=== PATIENT | male | born 1950 | race Caucasian/White ===

== ENCOUNTER 2017-07-23 05:35 | Inpatient (IN) | payer OTHER, MEDICARE ==
--- NOTE | 2017-07-18 11:35 | GHP ---
[f rep st] PREOP HISTORY AND PHYSICAL DATE OF ADMISSION: 07/23/2017 PROBLEM: Left hip advanced degenerative arthritis. HISTORY OF PRESENT ILLNESS: The patient is a 67-year-old man with advanced degenerative arthritis o f his left hip. I first saw him 16 years ago. His pain has slowly progressed. He is now having se leandro daily pain. He has a lot of night pain which interferes with sleep. He has difficulty putting on his shoes and socks. He uses Aleve and aspirin on the weekends. He is retired. He cannot ride a bicycle. He has failed nonsurgical treatment. He is admitted for a left total hip arthroplasty. He also has advanced degenerative arthritis in his right hip and will need a right total hip arthr oplasty in the near future as well. PAST MEDICAL HISTORY: Excellent general health. No history of heart disease, stents, DVT, hepatiti s, or sleep apnea. No history of previous serious MRSA infections. CURRENT MEDICATIONS: None. ALLERGIES: Drug allergies: None. Metal allergy: None. Latex allergy: None. SOCIAL HISTORY: The patient is . He is retired. He stopped smoking cigarettes 10 or 15 yea rs ago. He rarely drinks alcohol. He does not have any other total joint replacements. FAMILY HISTORY: Noncontributory. PHYSICAL EXAMINATION: GENERAL: He is a healthy-appearing man. EYES: The conjunctivae and sclerae are clear. Pupils are round and reactive. MOUTH: Good oral hygiene. No loose teeth. CHEST: Cl ear. HEART: Regular rhythm, no murmurs. EXTREMITIES: Pertinent findings are limited to his left hip. He has full hip extension and 70 degrees of flexion. As he flexes the hip, he develops a 20-d egree external rotation contracture and has no further internal or external rotation. Abduction 20 degrees. IMAGING: His films show very severe degenerative arthritis of the left hip. He is [id number]. T he femoral head is enlarged and flattened. He is about 5 mm short on the left. He also has advance d degenerative arthritis in the right hip, although it is not quite as severe as the left. PLAN: He will undergo a left total hip arthroplasty. The surgery has been described to him, includ ing the risks, complications, expectations, and recovery time. I have talked to him about the risk of dislocation, leg length inequality, infection, and sciatic nerve injury. He understands that he is relatively young and might need revision surgery in the future. He plans on having his right tot al hip done in the next 6 months. /[id number]/MODL
[2017-07-23] MEDS ORDERED: ROPIVACAINE 0.2% 80 MG, EPINEPHrine 0.2 MG, KETOROLAC TROMETHAMINE 30 MG in BAG 0 ML IU ONE (06:00)
[2017-07-23] MEDS ORDERED: TRANEXAMIC ACID 1,500 MG in NS 100 ML IV ONE (06:00)
[2017-07-23] MEDS ORDERED: POVIDONE-IODINE 20 ML in SODIUM CL IRRIG SOLUTION 500 ML IRR ONE (06:00)
[2017-07-23] MEDS ORDERED: ACETAMINOPHEN 325 MG TAB PO ONE (06:03)
[2017-07-23] MEDS ORDERED: FAMOTIDINE 20 MG TAB PO ONE (06:03)
[2017-07-23] MEDS ORDERED: ceFAZolin 2 GM/DEXTROSE 100 ML IV ONE (06:03)
[2017-07-23] MEDS ORDERED: DEXAMETHASONE 4 MG/ML VIAL IVP ONE (06:03)
[2017-07-23] MEDS ORDERED: LR 1,000 ML IV ONE (06:08)
[2017-07-23] MEDS ORDERED: ceFAZolin 1 GM/5 ML SYR ONE (06:38)
--- NOTE | 2017-07-23 06:54 | PDHPUP ---
History & Physical Update H&P update statement: This history and physical update is based on an assessment of the patient which was completed after admission or registration (within 24 hours), but prior to the surgery/procedure. H&P update: H&P reviewed & patient examined, no change in patient's condition since H&P completed
[2017-07-23] MEDS ORDERED: MIDAZOLAM 2 MG/2 ML VIAL ONE (06:55)
--- NOTE | 2017-07-23 06:57 | PDANEPAE ---
ANE History of Present Illness 67 yo for l kodi ANE Past Medical History - Cardiovascular History Hx Hypertension: No Hx Arrhythmias: No Hx Chest Pain: No Hx Coronary Artery / Peripheral Vascular Disease: No Hx CHF / Valvular Disease: No Hx Palpitations: No - Pulmonary History Hx COPD: No Hx Asthma/Reactive Airway Disease: No Hx Recent Upper Respiratory Infection: No Hx Oxygen in Use at Home: No Hx Sleep Apnea: No Sleep Apnea Screening Result - Last Documented: Negative Pulmonary History Comment: OCC CHEST CONGESTION - Neurologic History Hx Cerebrovascular Accident: No Hx Seizures: No Hx Dementia: No - Endocrine History Hx Diabetes: No - Renal History Hx Renal Disorders: No - Liver History Hx Hepatic Disorders: No - Neurological & Psychiatric Hx Hx Neurological and Psychiatric Disorders: No - Cancer History Hx Cancer: No - Congenital Disorder History Hx Congenital Disorders: No - GI History Hx Gastrointestinal Disorders: No - Other Health History Other Health History: WEARS GLASSES FOR DRIVING. BRACES ON TEETH - Chronic Pain History Chronic Pain: Yes (LEFT HIP) - Surgical History Prior Surgeries: APPY IN 6TH GRADE OR SO. WISDOM TEETH REMOVED X2 ANE Review of Systems - Exercise capacity METS (RN): 4 METS ANE Patient History - Allergies Allergies/Adverse Reactions: No Known Allergies Allergy (Verified 07/18/17 15:10) - Home Medications Home medications: home medication list seen and reviewed Home Medications: Aspirin [Aspirin 325 mg (*)] 325 mg PO DAILY PRN 07/18/17 [Last Taken 2 Weeks Ago] Naproxen Sodium [Aleve 220 MG (*)] 220 mg PO DAILY PRN 07/18/17 [Last Taken 2 Weeks Ago] Herbals/Supplements -Info Only 07/23/17 [Last Taken 07/13/17] - NPO status NPO Status: no food or drink >8 hours NPO Since - Liquids (Date): 07/23/17 NPO Since - Liquids (Time): 04:15 NPO Since - Solids (Date): 07/22/17 NPO Since - Solids (Time): 21:00 - Anes Hx Anes Hx: no prior problems - Smoking Hx Smoking Status: Former smoker - Family Anes Hx Family Hx Anesthesia Complications: NONE ANE Labs/Vital Signs - Vital Signs Blood Pressure: 140/94 Heart Rate: 63 Respiratory Rate: 16 O2 Sat (%): 93 Height: 5 ft 11 in Weight: 72.575 kg ANE Physical Exam - Airway Neck exam: FROM Mallampati Score: Class 2 Mouth exam: normal dental/mouth exam - Pulmonary Pulmonary: no respiratory distress - Cardiovascular Cardiovascular: regular rate and rhythym - ASA Status ASA Status: II ANE Anesthesia Plan Anesthesia Plan: spinal
[2017-07-23] MEDS ORDERED: MIDAZOLAM 2 MG/2 ML VIAL IVP ONE (06:58)
[2017-07-23] MEDS ORDERED: PROPOFOL/EMULSION 500 MG/50 ML BOTTLE IV ONE ×2 (07:08→08:11)
[2017-07-23] MEDS ORDERED: fentaNYL 100 MCG/2 ML INJ ONE (07:32)
[2017-07-23] MEDS ORDERED: epHEDrine SULFATE 10 MG/ML SYR ONE (07:37)
[2017-07-23] MEDS ORDERED: ONDANSETRON 4 MG/2 ML VIAL ONE (07:37)
[2017-07-23] MEDS ORDERED: PROMETHAZINE HCL 25 MG/ML INJ IVP PRN (08:46)
[2017-07-23] MEDS ORDERED: diphenhydrAMINE 25 MG CAP PO PRN (08:46)
[2017-07-23] MEDS ORDERED: BISACODYL 10 MG SUPP PR PRN (08:46)
[2017-07-23] MEDS ORDERED: ONDANSETRON DISINTEGRATING 4 MG TAB PO PRN (08:46)
[2017-07-23] MEDS ORDERED: PROMETHAZINE HCL 25 MG SUPPR PR PRN (08:46)
[2017-07-23] MEDS ORDERED: POLYETHYLENE GLYCOL 3350 17 GM PKT PO PRN (08:46)
[2017-07-23] MEDS ORDERED: ONDANSETRON 4 MG/2 ML VIAL IVP PRN ×2 (08:46→09:05)
[2017-07-23] MEDS ORDERED: KETOROLAC 30 MG/1 ML SDV IVP PRN (08:46)
[2017-07-23] MEDS ORDERED: METOCLOPRAMIDE 10 MG/2 ML VIAL IVP PRN (08:46)
[2017-07-23] MEDS ORDERED: MAGNESIUM HYDROXIDE 30 ML UDCUP PO PRN (08:46)
[2017-07-23] MEDS ORDERED: traMADol 50 MG TAB PO PRN (08:46)
[2017-07-23] MEDS ORDERED: TEMAZEPAM 15 MG CAP PO PRN (08:46)
[2017-07-23] MEDS ORDERED: DIPHENOXYLATE/ATROPINE LOMOTIL 1 TAB PO PRN (08:46)
[2017-07-23] MEDS ORDERED: LACTULOSE 20 GM/30 ML UDCUP PO PRN (08:46)
--- NOTE | 2017-07-23 08:46 | POSTOPPROG ---
Post Op Note Date of Operation: 07/23/17 Surgeon: Evan Barfield Glass Novelty Maker: Blaze Barber/Nati Hastings Anesthesiologist: Dr. Fernandes Anesthesia: IV Sedation, Spinal Post-op Diagnosis: Left hip severe degenerative arthritis. Procedure: Left total hip arthroplasty. Inf/Abcess present in the surg proc area at time of surgery?: No EBL: 100-500
[2017-07-23] MEDS ORDERED: LR 1,000 ML IV SCH (09:00)
[2017-07-23] MEDS ORDERED: fentaNYL 100 MCG/2 ML INJ IVP PRN (09:05)
[2017-07-23] MEDS ORDERED: NALOXONE HCL 0.4 MG/ML INJ IVP PRN (09:05)
[2017-07-23] MEDS ORDERED: HYDROmorphONE/DILAUDID 1 MG/ML SYR IVP PRN (09:05)
--- NOTE | 2017-07-23 09:07 | POSTANESTH ---
Post Anesthetic Evaluation Cardiovascular Status: Normal, Stable Respiratory Status: Normal, Stable Level of Consciousness/Mental Status: Can Participate in Eval Pain Control: Adequate, Prn Tx Ordered Nausea/Vomiting Control: Adequate, Prn Tx Ordered Complications Possibly Related to Anesthesia: None Noted
--- NOTE | 2017-07-23 11:12 | GOP ---
[f rep st] OPERATIVE REPORT DATE OF OPERATION: 07/23/2017 SURGEON: Evan Barfield MD SHIRRING MACHINE OPERATOR: Blaze Barber and Nati Hastings. ANESTHESIA: Combination of Marcaine, spinal, and IV sedation. ANESTHESIOLOGIST: Dr. Fernandes. PREOPERATIVE DIAGNOSIS: Left hip severe degenerative arthritis. POSTOPERATIVE DIAGNOSIS: Left hip severe degenerative arthritis. PROCEDURE PERFORMED: Left total hip arthroplasty, ceramic femoral head on highly cross-linked polye thylene cup liner. FINDINGS: ESTIMATED BLOOD LOSS: About 400 mL. The sponge and needle count were correct on 2 occasions. I used a Chrissy Tritanium hemispherical press-fit cluster hole acetabular shell with an outside karthik meter of 56 mm. The liner was a Chisholm X3 10-degree lipped highly cross-linked liner with an insid e diameter of 36 mm. The femoral component was a standard offset Chisholm Accolade II stem in a size 6 and press-fit. The femoral head was a Chisholm Biolox Delta ceramic head with a +5 mm neck length and a 36 mm outside diameter. Blaze Barber and Nati Hastings acted as surgical assistants. Their assistance was a medical necess ity for the safe completion of the procedure. DESCRIPTION OF PROCEDURE: The patient was given 2 g of IV Ancef preoperatively within 60 minutes of surgery. He also received IV tranexamic acid at a dose of 20 mg/kg. [facility] given spinal anesthesia with Marcaine by Dr. Fernandes. He was then placed supine a nd given IV sedation. A Shaffer catheter was not used. He was rolled to the right lateral decubitus position. The position was secured with the pegboard table attachment. An axillary roll was used, and all pressure points were carefully padded. I was careful to lock his pelvis in a rigid vertical position. His perineum was isolated with plastic adhesive drapes. The left hip and left lower ext remity were prepped with ChloraPrep. They were draped free using sterile sheets, stockinette, and I oban plastic drapes. The World Health Organization time-out was performed to verify the correct surgical side and the cor rect patient identity. The time-out was also performed. I made a 4-5 inch straight oblique posterolateral hip skin incision. Subcutaneous tissues were sarah ply divided, and hemostasis was obtained using electrocautery. The proximal portion of his fascia l marguerite was split along the axis of its fibers. I then curved posteriorly and proximally, and split the fascia of the gluteus pam and bluntly split the muscle fibers in line with their orientation. The Charnley self-retaining retractor was inserted. His sciatic nerve was located, partially expose d, and protected throughout the procedure. The external rotators and the posterior hip capsule were divided as separate layers at the base of the femoral neck, tagged, and reflected posteriorly. A s [employer] 8-inch Steinmann pin was inserted vertically into the ilium, superior to the acetabulum. An 8 -inch drill bit was inserted vertically into the greater trochanter and parallel to the first pin. The distance between the two was measured for leg length reference. His femoral head was dislocated posteriorly. Severe degenerative changes were present in and around the femoral head. His femoral neck was osteotomized at the appropriate level and inclination. I was careful to preserve all the posterior capsule and most of the anterior capsule. The remnant o f his damaged labrum was excised. The femur was prepared first. This allowed me to computational theory scientist the amount of natural femoral neck anteversi on. He had about 10 degrees of natural femoral neck anteversion. The canal was opened laterally wi th a box chisel. I hand-broached sequentially up to size 6. I used a size 6 broach as a trial stem . I was careful to lateralize adequately. I was using the Chrissy Accolade II stem. Appropriate retractors were inserted to expose the acetabulum. The acetabulum was reamed sequential ly up to 55 mm. Because of the large dense medial acetabular osteophyte, it was difficult to determ ine when I had reached the true floor of the acetabulum. I selected a 56 mm Chisholm Tritanium clust er hole hemispherical shell. This was tapped securely into place in the proper degree of inclinatio n and anteversion. I used the remnant of his transverse acetabular ligament and other acetabular kati ny landmarks to help me properly orient the cup. I inserted a 30 mm and a 25 mm supplemental fixati on screws through the shell into the ilium. The cup fixation was secure. He had a large posterior inferior osteophyte, which I removed with an osteotome and rongeur. I also inserted a screw-in meta l dome hole plug. I performed a series of trial reductions to determine length and stability. I concluded that the si ze 6 stem with a +5 mm neck length and a 36 mm head, with a 10 degree lipped liner, gave me the prop er combination of appropriate length and good anterior and posterior stability. The 10 degree lip Chrissy X3 highly cross-linked polyethylene cup liner was inserted and tapped secu rely into place. I then selected the Chrissy Accolade II stem in a size 6 with standard offset. Th is was inserted press-fit and was very tight. I did one final trial reduction and confirmed that th e +5 mm neck length with a 36 mm head was the proper combination. The patient was 6 or 7 mm short p reoperatively, and I was intentionally lengthening him. I also wanted to leave myself a few millime ters of leeway so that when I did his other side I could lengthen that side as well. I selected the Chisholm Biolox Delta ceramic head with an outside diameter 36 mm and a neck length of +5 mm. The h ead was tapped securely onto the clean trunnion. The acetabulum was irrigated and cleaned, and the hip was reduced one final time. He had excellent anterior and posterior stability and appropriate l ength. Forty mL of the joint anesthetic cocktail were injected into the capsule, the deep musculature, and the subcutaneous tissues around the skin edges. The joint was thoroughly irrigated one final time w ith a dilute Betadine solution. His sciatic nerve was reinspected and looked unharmed. The externa l rotators and the posterior hip capsule were repaired in separate layers with #2 FiberWire sutures through drill holes in the greater trochanter. The fascia kandy was closed, first with several inter rupted [id number] #2 FiberWire sutures, followed by a running #2 barbed Ethicon Stratafix PDO s uture. Subcutaneous tissues were closed with a running 0 barbed Ethicon Stratafix Monoderm suture. The skin was closed with a running 3-0 barbed Ethicon Stratafix Monoderm subcuticular suture. The skin edges were reapproximated and sealed with Dermabond glue. The wound was covered with a strip o f Telfa, and everything was held in place with a piece of clear plastic Tegaderm. A long-leg DAYDAY stocking and SCD were applied to his left lower extremity. He wore a stocking and SC D on the opposite leg during the procedure. An abduction pillow was placed between his knees. He w as awakened from anesthesia and rolled to the supine position on his [facility]. He was taken to PACU in satisfactory condition. There were no recognized intraoperative complications. /[id number]/MODL
[2017-07-23] MEDS: SENNOSIDES/DOCUSATE SODIUM TAB PO SCH ×2 (11:22→20:39)
[2017-07-23] MEDS: FERROUS SULFATE 140 MG TAB.ER PO SCH (11:22)
[2017-07-23] MEDS: ACETAMINOPHEN 325 MG TAB PO SCH ×2 (12:45→19:12)
[2017-07-23] MEDS: oxyCODONE IR 5 MG TAB PO PRN ×2 (15:02→19:12)
[2017-07-23] MEDS: ceFAZolin 2 GM/DEXTROSE 100 ML IV SCH ×2 (15:03→20:40)
[2017-07-23] MEDS: FAMOTIDINE 20 MG TAB PO SCH (20:39)
[2017-07-23] MEDS: CYCLOBENZAPRINE 10 MG TAB PO PRN (20:39)
[2017-07-24] MEDS: ACETAMINOPHEN 325 MG TAB PO SCH ×3 (00:28→12:15)
[2017-07-24] MEDS: oxyCODONE IR 5 MG TAB PO PRN ×4 (00:29→12:15)
[2017-07-24 05:17] LABS: HEMATOCRIT 38.2 % (40.0-51.0); HEMOGLOBIN 13.2 g/dL (13.7-17.5)
--- NOTE | 2017-07-24 07:27 | SOAPPROG ---
SOAP Progress Note Assessment/Plan: Assessment: Afebrile. Awake and alert. Moderate pain. He has been up and walking twice. He needed a catheter in the PACU yesterday but has been voiding spontaneously since then. His dressing is dry. Sciatic nerve intact. H&H are good. Films look good. Plan: Up with physical therapy for walking and stairs today. Discharged later today. 07/24/17 07:26 Objective: Vital Signs Temp Pulse Resp BP Pulse Ox 36.3 C 65 18 134/90 H 95 07/24/17 03:05 07/24/17 03:05 07/24/17 03:05 07/24/17 03:05 07/24/17 03:05 Laboratory Results 07/24/17 04:14 07/23/17 07/24/17 07/25/17 05:59 05:59 05:59 Intake Total 600 865 Output Total 600 2225 Balance 0 -1360 ICD10 Worksheet Patient Problems: Problems Problem Status Onset Osteoarthritis of left hip Acute
--- NOTE | 2017-07-24 07:59 | GDS ---
[f rep st] DISCHARGE SUMMARY ADMISSION DIAGNOSIS: Left hip severe degenerative arthritis. DISCHARGE DIAGNOSIS: Left hip severe degenerative arthritis. OPERATIONS PERFORMED: July 23, 2017, a left total hip arthroplasty. POSTOPERATIVE COMPLICATIONS: None. CONDITION ON DISCHARGE: Improved. DESCRIPTION OF HOSPITAL COURSE: The patient was admitted to the hospital on the morning of surgery. His admission CBC was normal. The same day, under a combination of spinal anesthesia, and IV vicky tion he underwent a left total hip arthroplasty. Postoperatively, he was treated with multimodal DV T prophylaxis, including aspirin and early mobilization. On the first postoperative day, his hemogl obin and hematocrit were 13.2 and 38.2. He required Shaffer catheter in the PACU but was able to void spontaneously after that. He was seen by Physical Therapy and made good progress with ambulation a nd stairs. By the time of discharge, he was afebrile and was independent walking. His wound was cl opal and dry. DISPOSITION: The patient is discharged to his home. He may progress to full weightbearing on the l eft as tolerated. He will go to outpatient physical therapy. Continue aspirin 325 mg p.o. daily fo r 21 days. DAYDAY stockings for 1 week. Abduction pillow in bed for 3 weeks. I will see him back in the office on August 11, 2017. If there are any problems, he is to call me at the office. /[id number]/MODL
[2017-07-24 08:06] VITALS: BP 135/84; PULSE 62; RESP 14; TEMP 97.6; O2SAT 94
[2017-07-24] MEDS: SENNOSIDES/DOCUSATE SODIUM TAB PO SCH (08:20)
[2017-07-24] MEDS: CYCLOBENZAPRINE 10 MG TAB PO PRN (08:20)
[2017-07-24] MEDS: FAMOTIDINE 20 MG TAB PO SCH (08:20)
[2017-07-24] MEDS: FERROUS SULFATE 140 MG TAB.ER PO SCH (08:20)
== END 2017-07-24 12:59 | disposition home or self-care (01) | DRG 470 ==
LOC: F3N 05:35
PROVIDERS: ADMIT Orthopaedic Surgery; ATTEND Orthopaedic Surgery
PROC: 0SRB04A Replacement of Left Hip Joint with Ceramic on Polyethylene Synthetic Substitute, Uncemented, Open Approach (ICD-10-PCS; principal; 2017-07-23 07:15)
DX: M16.0 Bilateral primary osteoarthritis of hip (principal); R33.8 Other retention of urine; Z87.891 Personal history of nicotine dependence
CPT/HCPCS: 97116-GP; 97161-GP; 97165-GO; C1713; G8978-GP-CJ; G8979-GP-CI; G8980-GP-CI; G8987-GO-CI; G8988-GO-CI; G8989-GO-CI; J0171; J0690; J1100; J1885; J2250; J2405; J2704; J2795; J3010

== ENCOUNTER 2017-10-21 09:27 | Inpatient (IN) | payer OTHER, MEDICARE ==
--- NOTE | 2017-10-20 14:51 | GHP ---
[f rep st] PREOP HISTORY AND PHYSICAL DATE OF ADMISSION: He will be an a.m. admission for surgery at [facility] on Saturday, October 21, 2017. PROBLEM #1: Right hip arthritis. HISTORY OF PRESENT ILLNESS: The patient is a 67-year-old man admitted for a right total hip arthroplasty. He has had progressive pain in both hips over many years. He underwent a left total hip arthroplasty on July 23, 2017. That was his most painful hip. His right hip continues to be painful, and it limits his activities. He will undergo a right total hip arthroplasty. PAST MEDICAL HISTORY: Excellent general health. No history of heart disease, stents, DVT, hepatitis, or sleep apnea. He has never had a previous MRSA infection. CURRENT MEDICATIONS: None. ALLERGIES: Drug allergies: None. Metal allergy: None. Latex allergy: None. SOCIAL HISTORY: The patient is . He is retired. He stopped smoking cigarettes 10 or 15 years ago. He rarely drinks alcohol. FAMILY HISTORY: Noncontributory. PHYSICAL EXAMINATION: GENERAL: He is a thin, alert, healthy-appearing man. VITAL SIGNS: Height 5 feet 11 inches. Weight 185 pounds. BMI 25.8. EYES: Conjunctivae and sclerae are clear. Pupils are round and reactive. MOUTH: Good oral hygiene. No loose teeth. CHEST: Clear. HEART: Regular rhythm. No murmurs. EXTREMITIES: Pertinent findings are limited to his right hip. He has full hip extension and 90 degrees of flexion. As he flexes the hip, he develops a 20-degree external rotation contracture and has 10 additional degrees of external rotation. Abduction 20 degrees. IMAGING: Films show a properly positioned left total hip arthroplasty. The right hip shows advanced degenerative arthritis. He has cartilage space narrowing and peripheral osteophytes. IMPRESSION ON ADMISSION: 1. Right hip advanced degenerative arthritis. He is prepared for a right total hip arthroplasty. 2. 3 months status post successful left total hip arthroplasty. PLAN: He will undergo a right total hip arthroplasty. The surgery has been described to him, including the risks, complications, expectations, and recovery time. I have talked to him about the risks of dislocation, leg length inequality, infection, and sciatic nerve injury. He understands that he is relatively young for a hip replacement and might need revision surgery in the future. He does not have a primary care doctor. /[id number]/MODL MTDD
[~2017-10-21 09:27] MED LIST: POVIDONE-IODINE 20 ML in SODIUM CL IRRIG SOLUTION 500 ML IRR ONE; ROPIVACAINE 0.2% 80 MG, EPINEPHrine 0.2 MG, KETOROLAC TROMETHAMINE 30 MG in BAG 0 ML IU ONE; TRANEXAMIC ACID 1,500 MG in NS 100 ML IV ONE
[2017-10-21] MEDS ORDERED: DEXAMETHASONE 4 MG/ML VIAL IVP ONE (09:40)
[2017-10-21] MEDS ORDERED: FAMOTIDINE 20 MG TAB PO ONE (09:40)
[2017-10-21] MEDS ORDERED: ceFAZolin 2 GM/SWFI 2 GM/20 ML SYR IVP ONE (09:40)
[2017-10-21] MEDS ORDERED: ACETAMINOPHEN 325 MG TAB PO ONE (09:40)
[2017-10-21] MEDS ORDERED: LIDOCAINE 1% 2 ML INJ ONE (09:47)
[2017-10-21] MEDS ORDERED: ceFAZolin 1 GM/5 ML SYR ONE (10:01)
[2017-10-21] MEDS ORDERED: LR 1,000 ML IV ONE (10:02)
[2017-10-21] MEDS ORDERED: LIDOCAINE 1% 2 ML INJ ID PRN (10:02)
[2017-10-21] MEDS ORDERED: MIDAZOLAM 2 MG/2 ML VIAL ONE (11:17)
[2017-10-21] MEDS ORDERED: MIDAZOLAM 2 MG/2 ML VIAL IVP ONE (11:20)
--- NOTE | 2017-10-21 11:21 | PDANEPAE ---
ANE History of Present Illness R HIP OA ANE Past Medical History - Cardiovascular History Hx Hypertension: No Hx Arrhythmias: No Hx Chest Pain: No Hx Coronary Artery / Peripheral Vascular Disease: No Hx CHF / Valvular Disease: No Hx Palpitations: No - Pulmonary History Hx COPD: No Hx Asthma/Reactive Airway Disease: No Hx Recent Upper Respiratory Infection: No Hx Oxygen in Use at Home: No Hx Sleep Apnea: No Sleep Apnea Screening Result - Last Documented: Negative Pulmonary History Comment: OCC CHEST CONGESTION - Neurologic History Hx Cerebrovascular Accident: No Hx Seizures: No Hx Dementia: No - Endocrine History Hx Diabetes: No - Renal History Hx Renal Disorders: No - Liver History Hx Hepatic Disorders: No - Neurological & Psychiatric Hx Hx Neurological and Psychiatric Disorders: No - Cancer History Hx Cancer: No - Congenital Disorder History Hx Congenital Disorders: No - GI History Hx Gastrointestinal Disorders: No - Other Health History Other Health History: WEARS GLASSES FOR DRIVING. BRACES ON TEETH - Chronic Pain History Chronic Pain: Yes (R KNEE) - Surgical History Prior Surgeries: APPY IN 6TH GRADE OR SO. WISDOM TEETH REMOVED X2 ANE Review of Systems Review of Systems: - Exercise capacity METS (RN): 4 METS ANE Patient History - Allergies Allergies/Adverse Reactions: adhesive tape Allergy (Verified 08/28/17 14:41) - Home Medications Home Medications: Naproxen Sodium [Aleve 220 MG (*)] 220 mg PO DAILY PRN 08/28/17 [Last Taken Unknown] Herbals/Supplements -Info Only 1 ea PO DAILY 10/21/17 [Last Taken 10/14/17] - NPO status NPO Since - Liquids (Date): 10/20/17 NPO Since - Liquids (Time): 20:00 NPO Since - Solids (Date): 10/20/17 NPO Since - Solids (Time): 20:00 - Smoking Hx Smoking Status: Former smoker - Family Anes Hx Family Hx Anesthesia Complications: NONE ANE Labs/Vital Signs - Vital Signs Blood Pressure: 137/85 Heart Rate: 66 Respiratory Rate: 15 O2 Sat (%): 93 Height: 180.34 cm Weight: 72.575 kg ANE Physical Exam - Airway Neck exam: FROM Mallampati Score: Class 1 Mouth exam: normal dental/mouth exam - Pulmonary Pulmonary: no respiratory distress - Cardiovascular Cardiovascular: regular rate and rhythym - ASA Status ASA Status: I ANE Anesthesia Plan Anesthesia Plan: MAC, spinal
[2017-10-21] MEDS ORDERED: PROPOFOL/EMULSION 500 MG/50 ML BOTTLE IV ONE (11:46)
[2017-10-21] MEDS ORDERED: MEPERIDINE 25 MG/ML SYR IVP PRN (12:09)
[2017-10-21] MEDS ORDERED: HYDROmorphONE/DILAUDID 1 MG/ML INJ IVP PRN (12:09)
[2017-10-21] MEDS ORDERED: PROMETHAZINE HCL 25 MG/ML INJ IVP PRN ×2 (12:09→13:13)
[2017-10-21] MEDS ORDERED: NALOXONE HCL 0.4 MG/ML INJ IVP PRN (12:09)
[2017-10-21] MEDS ORDERED: fentaNYL 100 MCG/2 ML INJ IVP PRN (12:09)
[2017-10-21] MEDS ORDERED: ONDANSETRON 4 MG/2 ML VIAL IVP PRN ×2 (12:09→13:13)
[2017-10-21] MEDS ORDERED: PHENYLEPHRINE HCL 100 MCG/ML SYR ONE (12:13)
[2017-10-21] MEDS ORDERED: PROPOFOL 200 MG/20 ML VIAL ONE (12:46)
--- NOTE | 2017-10-21 13:05 | POSTOPPROG ---
Post Op Note Date of Operation: 10/21/17 Surgeon: Evan Barfield Cake Tester: Paresh Barber Anesthesiologist: Dr. Gadiel Mccarthy Anesthesia: IV Sedation, Spinal Post-op Diagnosis: Right hip severe degenerative arthritis Procedure: Right total hip arthroplasty Inf/Abcess present in the surg proc area at time of surgery?: No EBL: 100-500
[2017-10-21] MEDS ORDERED: MAGNESIUM HYDROXIDE 30 ML UDCUP PO PRN (13:13)
[2017-10-21] MEDS ORDERED: BISACODYL 10 MG SUPP PR PRN (13:13)
[2017-10-21] MEDS ORDERED: POLYETHYLENE GLYCOL 3350 17 GM PKT PO PRN (13:13)
[2017-10-21] MEDS ORDERED: KETOROLAC 30 MG/1 ML SDV IVP PRN (13:13)
[2017-10-21] MEDS ORDERED: LACTULOSE 20 GM/30 ML UDCUP PO PRN (13:13)
[2017-10-21] MEDS ORDERED: NS 500 ML IV PRN (13:13)
[2017-10-21] MEDS ORDERED: traMADol 50 MG TAB PO PRN (13:13)
[2017-10-21] MEDS ORDERED: ONDANSETRON DISINTEGRATING 4 MG TAB PO PRN (13:13)
[2017-10-21] MEDS ORDERED: METOCLOPRAMIDE 10 MG/2 ML VIAL IVP PRN (13:13)
[2017-10-21] MEDS ORDERED: diphenhydrAMINE 25 MG CAP PO PRN (13:13)
[2017-10-21] MEDS ORDERED: CYCLOBENZAPRINE 10 MG TAB PO PRN (13:13)
[2017-10-21] MEDS ORDERED: TEMAZEPAM 15 MG CAP PO PRN (13:13)
[2017-10-21] MEDS ORDERED: PROMETHAZINE HCL 25 MG SUPPR PR PRN (13:13)
[2017-10-21] MEDS ORDERED: DIPHENOXYLATE/ATROPINE LOMOTIL 1 TAB PO PRN (13:13)
[2017-10-21] MEDS ORDERED: LR 1,000 ML IV SCH (13:30)
--- NOTE | 2017-10-21 13:46 | GOP ---
[f rep st] OPERATIVE REPORT DATE OF OPERATION: 10/21/2017 SURGEON: Evan Barfield MD MOBILE PHONE SALESPERSON: YARED Taylor. Blaze Barber CFA. ANESTHESIA: A combination of Marcaine, spinal, and IV sedation. ANESTHESIOLOGIST: Philippe Mccarthy MD PREOPERATIVE DIAGNOSIS: Right hip degenerative arthritis. POSTOPERATIVE DIAGNOSIS: Right hip degenerative arthritis. PROCEDURE PERFORMED: Right total hip arthroplasty. Ceramic femoral head on highly cross-linked poly ethylene cup liner. FINDINGS: DESCRIPTION OF PROCEDURE: The patient was given 2 g of IV Ancef preoperatively within 60 minutes of surgery. He also received IV tranexamic acid at a dose of 20 mg/kg. He was placed on the operating room table and given spinal anesthesia with Marcaine by Dr. Mccarthy. He was then placed supine and gi charity IV sedation. A Shaffer catheter was not used. He wore a DAYDAY stocking and SCD on the nonoperative leg. He was rolled to the left lateral decubitus position. The position was secured with the pegboa rd table attachment. An axillary roll was used, and all pressure points were carefully padded. I wa s careful to lock his pelvis in a rigid vertical position. His perineum was isolated with plastic ad hesive drapes. The right hip and right lower extremity were prepped with ChloraPrep. They were drap ed free using sterile sheets, stockinette, and Ioban plastic adhesive drapes. The [employer] time-out was performed to verify the correct surgical side and site, and the correct patient identity. The [place] time-out was also performed. I made a 4-5 inch straight oblique posterolateral hip skin incision. Subcutaneous tissues were sharp ly divided, and hemostasis was obtained using electrocautery. The fascia kandy was identified and spl it along the axis of its fibers. I curved posteriorly and proximally, and split the fascia of the gl uteus pam and bluntly split the muscle fibers in line with their orientation. The Charnley self- retaining retractor was inserted. His sciatic nerve was located, partially exposed, and protected th roughout the procedure. The external rotators and the posterior hip capsule were divided as separate layers at the base of the femoral neck, tagged, and reflected posteriorly. A smooth 8-inch Abby n pin was inserted vertically into the ilium, superior to the acetabulum. An 8-inch drill bit was in serted vertically into the greater trochanter and parallel to the first pin. The distance between th e 2 was measured for leg length reference. His femoral head was dislocated posteriorly. Severe dege nerative changes were present. The femoral neck was osteotomized at the appropriate level and inclin ation. I was careful to preserve all the posterior capsule and most of the anterior capsule. The remnant of his damaged labrum was excised. I prepared the femur first. This allowed me to quality assurance inspector the amount of natural femoral neck anteversion. This, in turn, allowed me to later determine the correct amount of cup anteversion. He had approxi mately 10 degrees of natural femoral neck anteversion. The canal was opened laterally with a box chi jonathan. I used a starter reamer, and then hand broached sequentially up to a size 6. I used a size 6 s tandard offset broach as a trial stem. I was careful to lateralize adequately. Appropriate retractors were inserted to expose the acetabulum. The acetabulum was reamed sequentiall y up to 55 mm. I selected a 56 mm Chrissy Tritanium solid-backed hemispherical shell. This was eligio ed securely into place in the proper degree of inclination anteversion. I used the transverse acetab ular ligament and other acetabular bony landmarks to help me properly orient the cup. The cup fixati on was very tight, and I did not think supplemental screws were necessary. I performed a series of trial reductions to determine length and stability. I concluded that the siz e 6 stem with the standard offset and a -2.5 mm neck with a 36 mm head and a 10-degree lipped liner g ave me the proper combination of appropriate length and good anterior and posterior stability. He wa s a little long on this side to start with, and I was being careful not to over-lengthen him. The 10-degree lip [place] X3 highly cross-linked polyethylene liner was inserted and tapped securely into place. I selected the Chrissy Accolade II stem in a size 6 with standard offset. This was inse rted press-fit and was very tight. I did 1 final trial reduction and confirmed that the -2.5 mm neck length with a 36 mm head was the proper combination. The [place] Biolox Delta ceramic head with an outside diameter of 36 mm and a neck length of -2.5 mm was tapped securely onto the clean trunnion. The acetabulum was irrigated, cleaned, and the hip was reduced 1 final time. He had excellent anteri or, posterior stability and appropriate length. Then, 40 mL of the joint anesthetic cocktail was injected into the capsule, the deep musculature, and subcutaneous tissues around the skin edges. The joint was thoroughly irrigated 1 final time with a dilute Betadine solution. His sciatic nerve was reinspected and looked unharmed. The external rotators and the posterior hip capsule were repaired in separate layers with #2 FiberWir e sutures through drill holes in the greater trochanter. This provided a strong posterior capsular a nd external rotator repair. The fascia kandy was closed first with a couple of drpana-dz-sfuya #2 Fib erWire sutures followed by a running #2 barbed Ethicon Stratafix PDO suture. Subcutaneous tissues we re closed with a running 0 barbed Ethicon Stratafix Monoderm suture. The skin was closed with a runn ing 3-0 barbed Ethicon Stratafix Monoderm subcuticular suture. The skin edges were reapproximated an d sealed with Dermabond glue. The wound was covered with a strip of Telfa, and everything was held i n place with a piece of clear plastic Tegaderm. A long-leg DAYDAY stocking and SCD were applied to his right lower extremity. He wore a stocking and SC D on the opposite leg during the procedure. An abduction pillow was placed between his knees. He wa s awakened from anesthesia, and rolled to the supine position on his [facility]. He was taken t o PACU in satisfactory condition. There were no recognized intraoperative complications. The estima dayday blood loss was about 300 mL. The sponge and needle count were correct on 2 occasions. I used a [place] Tritanium hemispherical solid-backed acetabular shell with an outside diameter of 56 mm. The liner was a Chrissy X3 10-degree, lipped, highly cross-linked liner with an inside diameter of 36 mm. The femoral component was a press-fit [place] standard offset Accolate II stem in a size 6. The femoral head was a Chrissy Biolox Delta ceramic head with a -2.5 mm neck length and a 36 mm o utside diameter. Louis Wong and Blaze Barber acted as surgical assistants. Their assistance was a medical necess ity for safe completion of the procedure. /[id number]/MODL
[2017-10-21] MEDS: oxyCODONE IR 5 MG TAB PO PRN ×2 (18:05→21:21)
[2017-10-21] MEDS: ACETAMINOPHEN 325 MG TAB PO SCH (18:06)
[2017-10-21] MEDS: ASPIRIN 325 MG TAB PO SCH (21:14)
[2017-10-21] MEDS: SENNOSIDES/DOCUSATE SODIUM TAB PO SCH (21:20)
[2017-10-21] MEDS: FAMOTIDINE 20 MG TAB PO SCH (21:22)
[2017-10-21] MEDS: ceFAZolin 2 GM/DEXTROSE 100 ML IV SCH (21:22)
[2017-10-22] MEDS: ACETAMINOPHEN 325 MG TAB PO SCH ×3 (00:44→12:09)
[2017-10-22] MEDS: ceFAZolin 2 GM/DEXTROSE 100 ML IV SCH (03:46)
[2017-10-22 03:51] VITALS: PULSE 61
[2017-10-22 05:02] LABS: HEMATOCRIT 41.6 % (40.0-51.0)
[2017-10-22 07:55] VITALS: RESP 16
--- NOTE | 2017-10-22 07:56 | SOAPPROG ---
SOAP Progress Note Assessment/Plan: Assessment: POD #1. s/p R RODOLFO Awake, alert, afebrile. VSS. H/H ok. Moderate pain overnight, improved now. Normal sciatic nerve function. Dressing clean and dry. OOB with PT. Plan: D/c to home later today. 10/22/17 07:54 Objective: Vital Signs Temp Pulse Resp BP Pulse Ox 36.3 C 61 18 143/92 H 97 10/22/17 03:50 10/22/17 03:50 10/22/17 03:50 10/22/17 03:50 10/22/17 03:50 Laboratory Results 10/22/17 04:52 10/21/17 10/22/17 10/23/17 05:59 05:59 05:59 Intake Total 1100 Output Total 1700 Balance -600 ICD10 Worksheet Patient Problems: Problems Problem Status Onset Osteoarthritis of right hip Acute Osteoarthritis of left hip Acute
--- NOTE | 2017-10-22 08:30 | GDS ---
[f rep st] DISCHARGE SUMMARY ADMISSION DIAGNOSIS: Severe right hip osteoarthritis. DISCHARGE DIAGNOSIS: Severe right hip osteoarthritis. OPERATIONS PERFORMED: Right total hip arthroplasty. POSTOPERATIVE COMPLICATIONS: None. CONDITION ON DISCHARGE: Improved. DESCRIPTION OF HOSPITAL COURSE: The patient was admitted to the hospital on the day of surgery. His admission hemoglobin was 17.0 and his hematocrit was 48.3. White blood cell count was 10.82. The day under a combination of IV sedation and Marcaine spinal anesthesia, the patient underwent a ri ght total hip arthroplasty. He was treated with multimodal DVT prophylaxis including aspirin, DAYDAY st ockings, SCDs, and early mobilization. On the 1st postoperative day, the patient's hemoglobin and hematocrit were 15.0 and 41.6. He did not require any transfused blood. He was seen by Physical therapy and made good progress with ambulatio n. He had moderate pain overnight, which required IV morphine. The day of discharge, the patient's pain was significantly improved. He was voiding on his own. By the time of discharge, the patient was independent with his walker and afebrile. DISPOSITION: The patient is discharged to his home. He will go directly to outpatient geophysical laboratory chief apy. He has prescriptions for tramadol, Celebrex, and oxycodone for pain control. Full-strength asp irin x21 days for DVT prophylaxis. DAYDAY stockings x1 week. Abduction pillow in bed x3 weeks. Weight bearing as tolerated. The patient has a followup appointment in 3 weeks. He is to call the office s ooner if he has any problems. /[id number]/MODL
[2017-10-22] MEDS: FAMOTIDINE 20 MG TAB PO SCH (08:43)
[2017-10-22] MEDS: ASPIRIN 325 MG TAB PO SCH (08:43)
[2017-10-22] MEDS: SENNOSIDES/DOCUSATE SODIUM TAB PO SCH (08:43)
[2017-10-22] MEDS: oxyCODONE IR 5 MG TAB PO PRN ×2 (08:44→12:09)
[2017-10-22] MEDS ORDERED: FERROUS SULFATE 140 MG TAB.ER PO SCH (09:00)
[2017-10-22 11:38] VITALS: BP 131/85; TEMP 97.6; O2SAT 94
--- NOTE | 2017-10-22 12:01 | ASMTCMCOM ---
CM Note CM Note Notes: Pt medically stable for d/c, no CM d/c needs identified. PT rec home vs. outpatient. D/c summary indicates pt will have outpatient. Pre-surgery call pt indicated he is independent. Date Signed: 10/22/2017 12:01 PM Electronically Signed By:CATHLEEN Scales
--- NOTE | 2017-10-22 12:35 | ASDISCHSUM ---
Discharge Information Plan Status:Home with No Needs Medically Cleared to Leave: Discharge Date:10/22/2017 12:29 PM CM D/C Disposition:Home, Routine, Self-Care ADT D/C Disposition:Home, Routine, Self-Care Projected Discharge Date:10/22/2017 12:29 PM Transportation at D/C: Discharge Delay Reason: Follow-Up Date:10/22/2017 12:29 PM Discharge Slot: Final Diagnosis: Placement Information Patient Contact Information Contact Name:DANIEL Relationship: Address:[address] [address] City:[place] Alternate Phone: [facility]/Zip Code:[place] [address] Email: Financial Information Financial Class: Primary Plan Desc:MEDICARE INPATIENT Primary Plan Number:[id number] Secondary Plan Desc:[employer]/MDR SUPPLEMENT Secondary Plan Number:[id number] Assessment Information [facility] CM Progress Note CM Note CM Note Notes: Pt medically stable for d/c, no CM d/c needs identified. PT rec home vs. outpatient. D/c summary indicates pt will have outpatient. Pre-surgery call pt indicated he is independent. Date Signed: 10/22/2017 12:01 PM Electronically Signed By:CATHLEEN Scales Intervention Information
== END 2017-10-22 12:29 | disposition home or self-care (01) | DRG 470 ==
LOC: F3N 09:27
PROVIDERS: ADMIT Orthopaedic Surgery; ATTEND Orthopaedic Surgery
PROC: 0SR904Z Replacement of Right Hip Joint with Ceramic on Polyethylene Synthetic Substitute, Open Approach (ICD-10-PCS; principal; 2017-10-21 12:00)
DX: M16.11 Unilateral primary osteoarthritis, right hip (principal); Z96.642 Presence of left artificial hip joint
CPT/HCPCS: 97116-GP; 97161-GP; 97165-GO; G8978-GP-CI; G8979-GP-CI; G8980-GP-CI; G8987-GO-CI; G8988-GO-CI; G8989-GO-CI; J0171; J0690; J1100; J1885; J2250; J2370; J2405; J2704; J2795

== ENCOUNTER 2017-10-25 08:44 | Emergency (ER) | payer OTHER, MEDICARE ==
[2017-10-25] MEDS ORDERED: NS 1,000 ML IV ONE ×2 (08:51→14:22)
--- NOTE | 2017-10-25 09:03 | EDPHY ---
HPI/HX/ROS/PE/MDM Narrative: CHIEF COMPLAINT: Abdominal pain HPI: The patient is a 67 y/o male arriving with his complaining of abdominal pain that began 2 nights ago. He had a right hip surgery on the , 4 days ago, and has been taking daily narcotics for the pain. His pain is worst in the LLQHe thinks his abdominal pain may be related to the constipation he developed after the surgery. He started taking a stool softener and laxative yesterday and tried an enema without success. He has been belching frequently and began vomiting this morning. He was able to have a small bowel movement this morning, but continues to feel urgency. He denies fever or other acute complaints. REVIEW OF SYSTEMS: Aside from elements discussed in the HPI, a comprehensive 10-point review of systems was reviewed and is negative. PMH: Appendectomy, right hip surgery 10/21/17 SOCIAL HISTORY: at bedside. Lives in [place]. PCP: Dr. Sosa. PHYSICAL EXAM: General:Patient is alert, in no acute distress. ENT:Eyes are normal to inspection. ENT inspection normal. Neck: Normal inspection. Full range of motion. Respiratory:No respiratory distress. Breath sounds normal bilaterally. Cardiovascular: Regular rate and rhythm. Strong peripheral pulses. Normal cap refill. Abdomen:The abdomen is nontender to palpation. There are no peritoneal signs. There are normal bowel sounds. Back: Normal to inspection. No tenderness to palpation. Skin: Normal color. No rash. Warm and dry. Extremities: Normal appearance. Full range of motion. Neuro: Oriented x3. Normal motor function. Normal sensory function. ED Course: This is a 67 y/o male who presents 4 days post right hip surgery complaining of abdominal pain and constipation. His abdomen is benign on exam. Plan for IV, labs, and abdominal x-ray. He declines pain medication. 1L IV NS administered. X-ray shows mild constipation. Discussed results with him. Recommended abdominal CT, which he agrees to. CT shows constipation. Reevaluated patient and discussed results. He continues to have a benign exam. Plan for enema here. MDM: This patient presents with constipation and abdominal cramping in setting of recent orthopedic surgery and narcotic pain medicine use. Given his degree of discomfort, I ordered a CT of the abd/pelvis to rule out potentially serious disease, but thankfully this is negative. The patient was treated with IVNS, oral MgCitrate and an enema. He was observed int he ED for several hours and had several increasingly large bowel movements. At time of discharge, the patient felt much better and felt comfortable going home. We discussed strict return precautions. I see no evidence of ACS, diverticulitis, bowel obstruction , bowel perforation or UTI. - Data Points Imaging Results: Imaging Impressions Abdomen X-Ray 10/25/17 09:04 Impression: Mild constipation. Otherwise negative. Abdomen CT 10/25/17 09:31 Impression: 1. Mild constipation. No evidence of adynamic ileus, colitis, or acute localizing intraabdominal process. 2. Normal caliber abdominal aorta with trace calcified plaque. Findings discussed with Emergency Department physician, Byorn Snell M.D. , on October 25, 2017 at 10:24 a.m. Imaging: Discussed imaging studies w/ orthopedically impaired teacher Radiologist, I viewed and interpreted images myself Laboratory Results: Laboratory Results 10/25/17 09:07 10/25/17 09:07 10/25/17 10/25/17 09:07 09:07 WBC 12.52 10^3/uL H 10^3/uL (3.80-9.50) RBC 5.54 10^6/uL 10^6/uL (4.40-6.38) Hgb 17.5 g/dL g/dL (13.7-17.5) Hct 49.6 % % (40.0-51.0) MCV 89.5 fL fL (81.5-99.8) MCH 31.6 pg pg (27.9-34.1) MCHC 35.3 g/dL g/dL (32.4-36.7) RDW 13.7 % % (11.5-15.2) Plt Count 348 10^3/uL 10^3/uL (150-400) MPV 9.8 fL fL (8.7-11.7) Neut % (Auto) 68.4 % % (39.3-74.2) Lymph % (Auto) 16.7 % % (15.0-45.0) [place] % (Auto) 9.3 % % (4.5-13.0) Eos % (Auto) 4.1 % % (0.6-7.6) Baso % (Auto) 0.9 % % (0.3-1.7) Nucleat RBC Rel Count 0.0 % % (0.0-0.2) Absolute Neuts (auto) 8.57 10^3/uL H 10^3/uL (1.70-6.50) Absolute Lymphs (auto) 2.09 10^3/uL 10^3/uL (1.00-3.00) Absolute Monos (auto) 1.16 10^3/uL H 10^3/uL (0.30-0.80) Absolute Eos (auto) 0.51 10^3/uL H 10^3/uL (0.03-0.40) Absolute Basos (auto) 0.11 10^3/uL H 10^3/uL (0.02-0.10) Absolute Nucleated RBC 0.00 10^3/uL 10^3/uL (0-0.01) Immature Gran % 0.6 % % (0.0-1.1) Immature Gran # 0.08 10^3/uL 10^3/uL (0.00-0.10) Sodium 137 mEq/L mEq/L (134-144) Potassium 4.6 mEq/L mEq/L (3.5-5.2) Chloride 101 mEq/L mEq/L (97-110) Carbon Dioxide 18 mEq/l L mEq/l (22-31) Anion Gap 18 mEq/L H mEq/L (8-16) BUN 17 mg/dL mg/dL (7-23) Creatinine 1.0 mg/dL mg/dL (0.7-1.3) Estimated GFR > 60 Glucose 110 mg/dL H mg/dL (70-100) Calcium 10.0 mg/dL mg/dL (8.5-10.4) Medications Given: Discontinued Medications Sodium Chloride (Ns) 1,000 mls @ 0 mls/hr IV EDNOW ONE; Wide Open PRN Reason: Protocol Stop: 10/25/17 08:52 Last Admin: 10/25/17 09:24 Dose: 1,000 mls Magnesium Citrate (Magnesium Citrate) 300 ml PO ONCE ONE Stop: 10/25/17 11:14 Last Admin: 10/25/17 11:22 Dose: 150 ml General Time Seen by Provider: 10/25/17 08:49 Initial Vital Signs: Initial Vital Signs Temperature (C) 36.5 C 10/25/17 08:48 Heart Rate 111 H 10/25/17 08:48 Respiratory Rate 22 H 10/25/17 08:48 Blood Pressure 131/97 H 10/25/17 08:48 O2 Sat (%) 98 10/25/17 08:48 O2 Delivery Mode Room Air Allergies/Adverse Reactions: adhesive tape Allergy (Verified 10/25/17 08:47) Home Medications: Medication Instructions Recorded Herbals/Supplements -Info Only 1 ea PO DAILY 10/21/17 Acetaminophen [Tylenol 325mg (*)] 650 mg PO Q6HRS tab 10/22/17 Aspirin [Aspirin 325 mg (*)] 325 mg PO DAILY tab 10/22/17 Ferrous Sulfate [Slow Fe 140 MG 140 mg PO DAILY tab.er 10/22/17 (*)] Ondansetron Odt [Zofran Odt 4 mg 4 mg PO Q4HRS PRN tab 10/22/17 (*)] Sennosides/Docusate Sodium 1 - 2 tab PO BID tab 10/22/17 [Senokot-S] celeCOXIB [Celebrex (*)] 200 mg PO DAILY cap 10/22/17 oxyCODONE IR [Oxycodone Ir (*)] 5 - 10 mg PO Q3HRS PRN tab 10/22/17 traMADol [Ultram 50 mg (*)] 50 mg PO Q6HRS PRN tab 10/22/17 Departure - Departure Disposition: Home, Routine, Self-Care Clinical Impression: Constipation Condition: Good Instructions: Constipation (ED), High Fiber Diet (ED) Additional Instructions: Continue constipation precautions while using narcotic pain medication. Follow up with your primary care provider for unimproved symptoms over the weekend. Return to the ED for severe pain, inability to have a bowel movement, fever, or other worsening of condition. Referrals: Odin Sosa MD [Primary Care Provider] - As per Instructions Report Scribed for: Byron Snell Report Scribed by: Aminta Dykes Date of Report: 10/25/17 Time of Report: 09:03 Physician Review and Approval Statement: Portions of this note were transcribed by an ED scribe. I personally performed the history, physical exam, and medical decision making; and confirm the accuracy of the information in the transcribed note.
[2017-10-25 09:12] LABS: % IMMATURE GRANULYOCYTES 0.6 % (0.0-1.1); ABSOLUTE IMMATURE GRANULOCYTES 0.08 10^3/uL (0.00-0.10); ADD DIFF? NO; ADD MORPH? NO; ADD SCAN? NO; ATYPICAL LYMPHOCYTE FLAG 0 (0-99); FRAGMENT RBC FLAG 0 (0-99); HEMATOCRIT 49.6 % (40.0-51.0); HEMOGLOBIN 17.5 g/dL (13.7-17.5); LEFT SHIFT FLG 0 (0-99); LIPEMIA HEMOLYSIS FLAG 90 (0-99); MEAN CELL HEMOGLOBIN 31.6 pg (27.9-34.1); MEAN CELL HEMOGLOBIN CONCENTR. 35.3 g/dL (32.4-36.7); MEAN CELL VOLUME 89.5 fL (81.5-99.8); MEAN PLATELET VOLUME 9.8 fL (8.7-11.7); PLATELET CLUMPS FLAG 10 (0-99); PLATELET COUNT 348 10^3/uL (150-400); RED BLOOD CELL COUNT 5.54 10^6/uL (4.40-6.38); RED CELL DISTRIBUTION WIDTH 13.7 % (11.5-15.2)
[2017-10-25 09:32] LABS: ANION GAP 18 mEq/L (8-16); CARBON DIOXIDE 18 mEq/l (22-31); CHLORIDE 101 mEq/L (97-110); GLOMERULAR FILTRATION RATE > 60; GLUCOSE 110 mg/dL (70-100); POTASSIUM 4.6 mEq/L (3.5-5.2); SODIUM 137 mEq/L (134-144)
[2017-10-25] MEDS ORDERED: IOPAMIDOL (ISOVUE-300) 100 ML BTL ONE (09:38)
[2017-10-25] MEDS ORDERED: MAGNESIUM CITRATE 300 ML BOTTLE PO ONE (11:13)
[2017-10-25 12:44] VITALS: RESP 18
--- NOTE | 2017-10-25 14:36 | CPEKG ---
Heart Rate: 82 RR Interval: 732 P-R Interval: 160 QRSD Interval: 82 QT Interval: 384 QTC Interval: 449 P Emma: 48 QRS Emma: 33 T Wave Emma: 25 EKG Severity - NORMAL ECG - EKG Impression: SINUS RHYTHM Electronically Signed By: Alex Barton 26-Oct-2017 08:09:48
[2017-10-25 15:33] VITALS: BP 142/89; PULSE 88; TEMP 98.1; O2SAT 97
== END 2017-10-25 15:32 | disposition home or self-care (01) ==
DX: K59.00 Constipation, unspecified (principal); E86.9 Volume depletion, unspecified; Z79.82 Long term (current) use of aspirin
CPT/HCPCS: 74000; 74177; 93005; Q9967